=== PATIENT | female | born 1975 | race Caucasian/White ===

== ENCOUNTER 2020-03-02 13:40 | Outpatient (CLI) | payer BC, SELFPAY ==
--- NOTE | ~2020-03-02 | XR_ITS ---
XR cervical spine 1V 03/02/2020 14:11 Indication: Fibromyalgia. Chronic neck pain. Procedure: Single lateral view of the cervical spine Comparison: No prior studies for comparison. Findings: There is disc narrowing at C4-5, C5-6 and C6-7 with prominent ventral osteophytes at these levels. There is mild multilevel facet hypertrophy. No prevertebral soft tissue swelling. No acute fr acture or traumatic malalignment. Odontoid process is grossly unremarkable. Impression: 1: Moderate cervical spondylosis. Reviewed, dictated and finalized at location B. Impression: 1: Moderate cervical spondylosis.
--- NOTE | ~2020-03-02 | XR_ITS ---
XR lumbar spine 2-3V 03/02/2020 14:11 Indication: Fibromyalgia Procedure: 3 views of the lumbar spine Comparison: No prior studies for comparison. Findings: There are facet degenerative changes at L4-5 and L5-S1. No fracture or traumatic malalignme nt. No evidence for spondylolisthesis. Pedicles intact. Sacral foramen are symmetric. Impression: 1: Mild lumbar spondylosis. Reviewed, dictated and finalized at location B. Impression: 1: Mild lumbar spondylosis.
[2020-03-02 14:37] LABS: Basophils Absolute Auto 0.1 K/mm3 (0.0-0.1); Basophils Percent Auto 0.6 % (0.2-1.2); Eosinophils Absolute Auto 0.9 K/mm3 (0-0.3); Eosinophils Percent Auto 9.5 % (0-4.4); Hematocrit 45.4 % (37.0-47.0); Hemoglobin 14.8 g/dL (12.0-15.0); Immature Granulocyte Absolute 0.01 K/mm3 (0.00-0.031); Immature Granulocyte Percent A 0.1 % (0-0.5); Lymphocytes Absolute Auto 2.54 K/mm3 (0.9-3.2); Lymphocytes Percent Auto 26.5 % (18.3-44.2); Mean Corpuscular HGB Conc 32.6 g/dl (32-36); Mean Corpuscular Hemoglobin 30.9 pg (26-34); Mean Corpuscular Volume 94.8 fl (80-100); Mean Platelet Volume 10.6 fl (7.4-10.4); Monocytes Absolute Auto 0.6 K/mm3 (0.1-0.6); Monocytes Percent Auto 6.3 % (2.6-8.5); Neutrophils Absolute Auto 5.5 K/mm3 (1.3-6.7); Platelet Count Result 322 k/mm3 (150-375); Red Blood Count 4.79 M/mm3 (4.2-5.4); Red Cell Distribution Width 13.5 % (11.5-14.5); White Blood Count 9.6 K/mm3 (4.5-10.0)
[2020-03-02 14:50] LABS: Rheumatoid Factor < 8.6 IU/ML (<12)
[2020-03-02 14:51] LABS: Alanine Aminotransferase 13 U/L (4-35); Albumin Level 4.4 g/dL (3.5-5.1); Alkaline Phosphatase 87 U/L (38-126); Anion Gap 6 mmol/L (8-16); Aspartate Amino Transferase 19 U/L (14-36); Bilirubin,Total 0.4 mg/dL (0.2-1.3); Blood Urea Nitrogen 6 mg/dL (7-17); CRP 2.2 mg/dL (<1.0); Calcium 8.8 mg/dL (8.4-10.2); Carbon Dioxide 27 mmol/L (22-30); Chloride 102 mmol/L (98-107); Estimated Glomerular Filt Rate > 60; Glucose 95 mg/dL (65-105); Potassium 4.1 mmol/L (3.4-5.0); Sodium 135 mmol/L (137-145)
[2020-03-02 15:14] LABS: Erythrocyte Sedimentation Rate 22 mm/hr (0-20)
[2020-03-02 15:54] LABS: Free T4 Free Thyroxine 0.74 ng/mL (0.78-2.19); Vitamin D 25 Hydroxy 31.4 ng/mL
== END 2020-03-02 13:41 | disposition home or self-care (01) ==
DX: M79.7 Fibromyalgia (principal); M47.896 Other spondylosis, lumbar region; M47.892 Other spondylosis, cervical region
CPT/HCPCS: 36415; 72020; 72100; 80053; 82306; 84439; 84443; 85025; 85652; 86038; 86140; 86430

== ENCOUNTER 2020-03-29 14:32 | Outpatient (CLI) | payer BC, SELFPAY ==
--- NOTE | ~2020-03-29 | MR_ITS ---
EXAMINATION: MR brain/brain stem wo con EXAM DATE: 03/29/2020 15:31 INDICATION: Seizures. TECHNIQUE: Magnetic resonance imaging (MRI) of the brain/brain stem obtained without contrast. Sagitt al T1, axial diffusion, gradient echo (T2*), T1, T2, FLAIR sequences obtained. Seizure protocol was u tilized including high-resolution coronal images through the hippocampi. There is no prior study f or comparison. FINDINGS: There are no areas of restricted diffusion to suggest acute infarction. There is no acute hemorrhage seen on the T2*, a hemosiderin sensitive sequence. No intraparenchymal brain mass. The ve ntricles are normal in size. There are no extra-axial collections. Flow voids are seen in the cereb ral arteries on the T2-weighted sequences consistent with their expected patency. The orbits are unr emarkable. Soft tissue is unremarkable. IMPRESSION: 1. Unremarkable brain MRI examination. Reviewed, dictated and finalized at location A.
--- NOTE | ~2020-03-29 | MR_ITS ---
EXAMINATION: MR lumbar spine wo con EXAM DATE: 03/29/2020 16:23 INDICATION: Radiculopathy. TECHNIQUE: Multi-sequential, multiplanar MR images of the lumbar spine were obtained without contrast . Sagittal T1, T2, T2 fat saturation images. Axial T2 weighted images. There is no prior study for comparison. FINDINGS: Mild diffuse thoracolumbar disc disease. Vertebral body heights are maintained. The vertebr al bodies are aligned in the AP dimension. There are no suspicious marrow signal abnormalities. The c onus medullaris terminates at the L1 level and has normal signal intensity and morphology. Paraspina l soft tissue is unremarkable. Level by level evaluation: T12-L1: There is a minimal diffuse disc bulge. Facet arthropathy: Mild. Neural foraminal stenosis: No stenosis. Central canal stenosis: No stenosis. L1-L2: Disc does not extend beyond the endplate margin. Facet arthropathy: Mild. Neural foraminal stenosis: No stenosis. Central canal stenosis: No stenosis. L2-L3: There is a minimal diffuse disc bulge. Facet arthropathy: Mild. Neural foraminal stenosis: No stenosis. Central canal stenosis: No stenosis. L3-L4: There is a mild diffuse disc bulge. Facet arthropathy: Mild to moderate. Neural foraminal stenosis: Mild left. Central canal stenosis: No stenosis. L4-L5: There is a mild diffuse disc bulge. Facet arthropathy: Mild. Neural foraminal stenosis: Mild bilateral. Central canal stenosis: No stenosis. L5-S1: There is a mild diffuse disc bulge. Facet arthropathy: Mild. Neural foraminal stenosis: No stenosis. Central canal stenosis: No stenosis. IMPRESSION: 1. Mild lumbar spondylosis. Reviewed, dictated and finalized at location A. IMPRESSION: 1. Mild lumbar spondylosis.
--- NOTE | ~2020-03-29 | MR_ITS ---
EXAMINATION: MR cervical spine wo [facility] EXAM DATE: 03/29/2020 16:13 INDICATION: Neck pain down right arm. TECHNIQUE: Multi-sequential, multiplanar MR images of the cervical spine were obtained without contra st. Axial T2, axial T2 MERGE sequence. Sagittal T1, T2, T2 fat saturation images also obtained. Th ere is no prior study for comparison. FINDINGS: There is moderate loss of the disc height at C5-6 and 6/7, mild to moderate at C4-5. The v ertebral bodies are aligned in the AP dimension. The spinal cord signal intensity and intrinsic morph ology is normal. Cervicomedullary junction is normal in appearance. There are no suspicious marrow si gnal abnormalities. Paraspinal soft tissue is unremarkable. Level by level evaluation: C2-C3: Disc does not extend beyond the endplate margin. Uncovertebral joint arthropathy: None. Facet joint arthropathy: Mild bilateral. Neural foraminal stenosis: No stenosis. Central canal stenosis: No stenosis. C3-C4: There is a minimal diffuse disc bulge. Uncovertebral joint arthropathy: Mild bilateral. Facet joint arthropathy: Mild bilateral. Neural foraminal stenosis: No stenosis. Central canal stenosis: No stenosis. C4-C5: There is a mild diffuse disc bulge. Uncovertebral joint arthropathy: Moderate right, mild to moderate left. Facet joint arthropathy: Mild bilateral. Neural foraminal stenosis: Moderate right, mild left. Central canal stenosis: Mild. C5-C6: Mild disc bulge asymmetric to the left. Uncovertebral joint arthropathy: Moderate left, mild right. Facet joint arthropathy: Mild bilateral. Neural foraminal stenosis: Mild to moderate left. Central canal stenosis: Mild. C6-C7: There is a mild diffuse disc bulge. Uncovertebral joint arthropathy: Moderate bilateral. Facet joint arthropathy: Mild bilateral. Neural foraminal stenosis: Moderate left. Central canal stenosis: Mild. C7-T1: Disc does not extend beyond the endplate margin. Uncovertebral joint arthropathy: Moderate left, mild right. Facet joint arthropathy: Mild bilateral. Neural foraminal stenosis: Moderate to severe left, no right. Central canal stenosis: No stenosis. IMPRESSION: 1. C7-T1 moderate to severe left neural foraminal stenosis. 2. Lesser neural foraminal stenosis at other mid cervical levels. Reviewed, dictated and finalized at location A.
== END 2020-03-29 14:33 | disposition home or self-care (01) ==
LOC: ANHIMG 14:39
PROVIDERS: PCP Physician Assistant; Visit Provider Physical Medicine & Rehabilitation Pain Medicine
DX: M47.26 Other spondylosis with radiculopathy, lumbar region (principal); M48.02 Spinal stenosis, cervical region; R56.9 Unspecified convulsions
CPT/HCPCS: 70551; 72141; 72148